=== PATIENT | female | born 1995 | race Hispanic/Latino ===

== ENCOUNTER → 2021-03-09 | Day surgery (SDC) | payer OTHER ==
[~2021-03-09] MED LIST: ACETAMINOPHEN 1000 MG/100 ML 100 ML IV ONE; LIDOCAINE 1% W/EPINEPHRINE 20 ML VIAL ONE; vyvanse PO
[2021-03-09 10:40] VITALS: BP 107/66
== END | disposition home or self-care (01) ==
LOC: OR 06:09
PROVIDERS: ATTEND Otolaryngology Otolaryngology/Facial Plastic Surgery
DX: J35.01 Chronic tonsillitis (principal); Z20.822 Contact with and (suspected) exposure to COVID-19; F90.9 Attention-deficit hyperactivity disorder, unspecified type
CPT/HCPCS: 42826; 81025; 88304; J0131; U0002